=== PATIENT | female | born 1970 | race Caucasian/White ===

== ENCOUNTER 2022-11-28 09:08 | Day surgery (SDC) | payer BC ==
[2022-11-21 15:10] LABS: BASOPHILS # (AUTO) 0.1 X10'3 (0-0.2); BASOPHILS % (AUTO) 0.9 % (0-1); EOSINOPHILS # (AUTO) 0.1 X10'3 (0-0.9); EOSINOPHILS % (AUTO) 2.2 % (0-6); LYMPHOCYTES # (AUTO) 1.8 X10'3 (1.1-4.8); LYMPHOCYTES % (AUTO) 30.3 % (21-51); MEAN CORPUSCULAR HEMOGLOBIN 29.8 PG (27.0-31.0); MEAN CORPUSCULAR HGB CONC 33.5 g/dL (33.0-36.5); MEAN PLATELET VOLUME 7.3 FL (7.4-10.4); MONOCYTES # (AUTO) 0.3 X10'3 (0-0.9); MONOCYTES % (AUTO) 5.6 % (2-12); NEUTROPHILS # (AUTO) 3.6 X10'3 (1.8-7.7); PRE OP HEMATOCRIT 39.8 % (35.0-45.0); PRE OP HEMOGLOBIN 13.3 g/dL (12.0-16.0); PRE OP PLATELET COUNT 325 X10'3 (140-440); RED BLOOD COUNT 4.47 X10'6 (4.20-5.60); RED CELL DISTRIBUTION WIDTH 12.9 % (11.5-14.5)
[2022-11-21 15:18] LABS: ALBUMIN 3.8 G/DL (3.4-5.0); ALBUMIN/GLOBULIN RATIO 0.9 (1.1-1.5); ALKALINE PHOSPHATASE 80 IU/L (46-116); BLOOD UREA NITROGEN 19 MG/DL (7-18); BUN/CREATININE RATIO 12.3 (10.0-20.0); CALCIUM 9.5 MG/DL (8.5-10.1); CHLORIDE 106 MMOL/L (99-107); CREATININE 1.54 MG/DL (0.40-0.90); PRE OP ALT 31 U/L (30-65); PRE OP ANION GAP 8 (8-16); PRE OP AST 19 U/L (10-37); PRE OP BILIRUB, TOTAL 0.1 MG/DL (0.0-1.0); PRE OP GLUCOSE 112 MG/DL (70-104); PRE OP POTASSIUM 3.9 MMOL/L (3.4-5.1); PRE OP SODIUM 144 MMOL/L (135-145); TOTAL CARBON DIOXIDE 29.8 MMOL/L (24-32); TOTAL PROTEIN 7.9 G/DL (6.4-8.2); eGFR 36 ML/MIN
[~2022-11-28] VITALS: Ht 157.5 cm; Wt 73.5 kg
[2022-11-28] VITALS (9 sets, daily range): BP systolic 118–136; BP diastolic 84–96
[~2022-11-28 09:08] MED LIST: AMLO5TAB16 PO; FEXO1TAB8 PO; LEVO112T5 PO; MONT-40 PO; MULT-1085 PO; ROSU20TA31 PO; UBID100C16 PO; albuterol 2.5 MG/3 ML nebule NEB ONE; famotidine 20mg tablet PO ONE; ringers solution, lacted 1,000 ML IV SCH
[2022-11-28] MEDS ORDERED: morphine 4 MG/ML inj SYRINge IV PRN (11:10)
[2022-11-28] MEDS ORDERED: hydrALAZINE 20mg/ml inj. IV PRN (11:10)
[2022-11-28] MEDS ORDERED: ringers solution, lacted 1,000 ML IV SCH (11:10)
[2022-11-28] MEDS ORDERED: fentaNYL/PF 50MCG/1 ML 2ML syringe IV PRN ×2 (11:10)
[2022-11-28] MEDS ORDERED: morphine 2 MG/ML inj. syringe IV PRN (11:10)
[2022-11-28] MEDS ORDERED: ondansetron/PF 4mg/2ml inj IV PRN (11:10)
[2022-11-28] MEDS ORDERED: labetalol 20mg/4ml (5mg/ml) syringe IV PRN (11:10)
[2022-11-28] MEDS ORDERED: dexamethasone sod phosphate 10mg/ml inj ONE (11:30)
[2022-11-28] MEDS ORDERED: sevoflurane 250ml liquid IH ONE (11:30)
[2022-11-28] MEDS ORDERED: fentaNYL/PF 50MCG/1 ML 2ML syringe ONE (11:32)
[2022-11-28] MEDS ORDERED: propofol inj 20 ML IV ONE (11:33)
[2022-11-28] MEDS ORDERED: midazolam 1 mg/ML 2ml injection ONE (11:33)
[2022-11-28] MEDS ORDERED: ondansetron/PF 4mg/2ml inj ONE (11:33)
[2022-11-28] MEDS ORDERED: LIDOcaine 2% (20mg/ml) 5ml vial ONE (11:33)
--- NOTE | 2022-11-28 12:17 | NUR ---
Received from OR via LIA TO [facility], accompanied by Anesthesiologist DR RICH and report given by Anesthesiolgist. PT PRESENTS WITH 20G RIGHT HAND, DRESING KRISTI PAD CDI, SPO2 100% 10L MASK, LR RUNNING AT 100 MLS/HR, VSS. Addendum: 11/28/22 at 1228 by Brittnee Michaels - JOSHUA RN Amended: Links added.
--- NOTE | 2022-11-28 13:27 | NUR ---
: ALL DISCHARGE CRITERIA HAS BEEN MET. VSS, PAIN AT A TOLERABLE LEVEL, VOIDING AND ABLE TO SAFELY AMBULATE AND TRANSFER SELF. IV TAKEN OUT WITHOUT ANY COMPLICATIONS. ALL DISCHARGE INSTRUCTIONS COVERED WITH PATIENT AND ALL QUESTIONS ANSWERED. PATIENT TAKEN OUT VIA WHEELCHAIR TO PERSONAL VEHICLE WHERE FAMILY/FRIEND DROVE PATIENT HOME. Addendum: 11/28/22 at 1336 by Brittnee Michaels - JOSHUA LEWIS Amended: Links added.
== END 2022-11-28 13:27 | disposition home or self-care (01) ==
LOC: PAS 09:08
PROVIDERS: ATTEND Obstetrics & Gynecology
DX: N95.0 Postmenopausal bleeding (principal); N88.8 Other specified noninflammatory disorders of cervix uteri; I12.9 Hypertensive chronic kidney disease with stage 1 through stage 4 chronic kidney disease, or unspecified chronic kidney disease; N18.30 Chronic kidney disease, stage 3 unspecified; F41.9 Anxiety disorder, unspecified; Z79.899 Other long term (current) drug therapy; Z87.891 Personal history of nicotine dependence; Z98.890 Other specified postprocedural states; Z90.5 Acquired absence of kidney; Z90.710 Acquired absence of both cervix and uterus; Z80.3 Family history of malignant neoplasm of breast
CPT/HCPCS: 36415; 58558; 80053; 82948; 85025; 93005; J2250; J2405; J2704; J3010; J3490; J7030; J7120; Z7506; Z7512; A4355; A4618; A6258; J1100